=== PATIENT | female | born 1990 | race Hispanic/Latino ===

== ENCOUNTER 2023-07-26 20:38 | Emergency (ER) | payer SELFPAY ==
[2023-07-26] MEDS ORDERED: HYDROcodone/Acetaminophen 5/325 mg Tablet ONE (21:54)
== END 2023-07-26 23:09 | disposition home or self-care (01) ==
LOC: CSHERS 20:38
DX: S83.92XA Sprain of unspecified site of left knee, initial encounter (principal); W19.XXXA Unspecified fall, initial encounter